=== PATIENT | male | born 1945 | race Caucasian/White ===

== ENCOUNTER 2017-05-11 10:53 | Inpatient (IN) | payer MEDICARE ==
[~2017-05-11] VITALS: Ht 180.3 cm; Wt 113.2 kg
[2017-05-11] MEDS ORDERED: SODIUM CHLORIDE 0.9% 1,000 ML IV ONE ×2 (11:16→12:55)
[2017-05-11] MEDS ORDERED: PLEASE ENTER ALLERGIES MC SCH ×2 (11:30)
[2017-05-11] MEDS ORDERED: ONDANSETRON 2MG/ML, 2ML IVPush ONE (11:30)
[2017-05-11] MEDS ORDERED: SODIUM CHLORIDE FLUSH 10ML SYR IVF ONE (11:30)
[2017-05-11] MEDS ORDERED: SODIUM CHLORIDE 0.9% 1,000ML IVBOLUS ONE (11:30)
[2017-05-11] MEDS ORDERED: ONDANSETRON 2MG/ML, 2ML ONE (12:00)
[2017-05-11 12:04] LABS: HEMATOCRIT 46.5 % (39.2-51.8); WHITE BLOOD COUNT 14.6 x10^3/uL (3.4-10)
[2017-05-11 12:16] LABS: ASPARTATE AMINO TRANSFERASE 8 U/L (15-37); BLOOD UREA NITROGEN 64 mg/dL (7-18)
[2017-05-11] MEDS ORDERED: SODIUM CHLORIDE FLUSH 10ML SYR IVF PRN (13:00)
[2017-05-11] MEDS ORDERED: DOCUSATE 100 MG CAPSULE PO PRN (14:00)
[2017-05-11] MEDS ORDERED: LABETALOL 5MG/ML, 20ML IVPush PRN (14:00)
[2017-05-11] MEDS ORDERED: METOCLOPRAMIDE 5 MG/ML, 2ML IVPush PRN (14:00)
[2017-05-11] MEDS ORDERED: ONDANSETRON 2MG/ML, 2ML IVPush PRN (14:00)
[2017-05-11] MEDS: NICOTINE 7 MG/24 HR PATCH.TD24 TD SCH (14:00)
[2017-05-11] MEDS ORDERED: PHARMACY MAY ADJ FOR RENAL FX MC PRN (14:00)
[2017-05-11] MEDS ORDERED: morphine SULFATE 10 MG/ML, 1ML IVPush PRN (14:00)
[2017-05-11] MEDS ORDERED: POLYETHYLENE GLYCOL 17 GM PACKET PO PRN (14:00)
[2017-05-11] MEDS ORDERED: BISACODYL 10 MG SUPP PR PRN (14:00)
[2017-05-11] MEDS ORDERED: PROMETHAZINE 25 MG/ML, 1ML IM PRN (14:00)
[2017-05-11] MEDS ORDERED: ATEN100T PO (14:07)
[2017-05-11] MEDS ORDERED: ATOR20TA9 PO (14:07)
[2017-05-11] MEDS ORDERED: FAMO40TA61 PO (14:07)
[2017-05-11] MEDS ORDERED: INSU100C SQ-INSULIN (14:07)
[2017-05-11] MEDS ORDERED: ALLO100T30 PO (14:07)
[2017-05-11] MEDS ORDERED: GLIP10TA13 PO (14:07)
[2017-05-11] MEDS ORDERED: ASPI-515 PO (14:07)
[2017-05-11] MEDS ORDERED: TERA10CA3 PO (14:07)
[2017-05-11] MEDS ORDERED: DEXTROSE 50%, 50ML SYRINGE IVPush PRN (14:30)
[2017-05-11] MEDS ORDERED: GLUCAGON 1 MG IM PRN (14:30)
[2017-05-11] MEDS ORDERED: DEXTROSE 4 GM TAB.CHEW PO PRN (14:30)
[2017-05-11] MEDS: INSULIN ASPART 100 UNITS/ML, PEN SQ-INSULIN SCH ×2 (16:00→20:05)
[2017-05-11 16:02] VITALS: BP 154/77
[2017-05-11] MEDS: HEPARIN 5,000 UNITS/ML, 1ML SQ SCH (16:50)
[2017-05-11] MEDS: SODIUM CHLORIDE 0.9% 1,000 ML IV SCH ×2 (16:51→23:07)
[2017-05-11 20:00] VITALS: BP 162/75
[2017-05-11] MEDS: SODIUM CHLORIDE FLUSH 10ML SYR IVF SCH (20:08)
[2017-05-11] MEDS: ATENOLOL 100 MG TABLET PO SCH (20:09)
[2017-05-11] MEDS: ATORVASTATIN 20 MG TABLET PO SCH (20:09)
[2017-05-12] MEDS: HEPARIN 5,000 UNITS/ML, 1ML SQ SCH ×3 (00:43→18:06)
[2017-05-12 02:30] VITALS: BP 151/91
[2017-05-12] MEDS: SODIUM CHLORIDE 0.9% 1,000 ML IV SCH ×3 (03:15→18:08)
[2017-05-12 05:11] LABS: HEMOGLOBIN 13.4 g/dL (13.7-18.0); WHITE BLOOD COUNT 10.1 x10^3/uL (3.4-10)
[2017-05-12 05:18] LABS: ASPARTATE AMINO TRANSFERASE 11 U/L (15-37); BLOOD UREA NITROGEN 54 mg/dL (7-18)
[2017-05-12] MEDS: TERAZOSIN 5MG CAPSULE PO SCH (08:26)
[2017-05-12] MEDS: SODIUM CHLORIDE FLUSH 10ML SYR IVF SCH ×2 (08:26→21:48)
[2017-05-12] MEDS: ALLOPURINOL 100 MG TABLET PO SCH (08:26)
[2017-05-12] MEDS: ATENOLOL 100 MG TABLET PO SCH ×2 (08:26→21:48)
[2017-05-12] MEDS: ASPIRIN 81 MG TABLET EC PO SCH (08:26)
[2017-05-12] MEDS: INSULIN ASPART 100 UNITS/ML, PEN SQ-INSULIN SCH ×4 (08:32→21:00)
[2017-05-12 08:33] VITALS: BP 125/75
[2017-05-12] MEDS: NICOTINE 7 MG/24 HR PATCH.TD24 TD SCH (14:00)
[2017-05-12] MEDS ORDERED: MAGNESIUM SULFATE PMX 4GM/100M 100 ML IV ONE (14:30)
[2017-05-12 14:47] VITALS: BP 117/71
[2017-05-12 19:32] VITALS: BP 116/66
[2017-05-12 21:46] VITALS: BP 125/76
[2017-05-12] MEDS: ATORVASTATIN 20 MG TABLET PO SCH (21:48)
[2017-05-13 01:36] VITALS: BP 128/64
[2017-05-13] MEDS: SODIUM CHLORIDE 0.9% 1,000 ML IV SCH ×3 (04:33→16:45)
[2017-05-13 05:15] LABS: HEMATOCRIT 39.7 % (39.2-51.8); HEMOGLOBIN 12.7 g/dL (13.7-18.0); WHITE BLOOD COUNT 7.6 x10^3/uL (3.4-10)
[2017-05-13 05:25] LABS: ASPARTATE AMINO TRANSFERASE 9 U/L (15-37); BLOOD UREA NITROGEN 45 mg/dL (7-18)
[2017-05-13] MEDS: INSULIN ASPART 100 UNITS/ML, PEN SQ-INSULIN SCH ×4 (07:00→21:00)
[2017-05-13] MEDS: HEPARIN 5,000 UNITS/ML, 1ML SQ SCH ×3 (08:00→22:00)
[2017-05-13 08:04] VITALS: BP 132/64
[2017-05-13] MEDS: TERAZOSIN 5MG CAPSULE PO SCH (08:04)
[2017-05-13] MEDS: ASPIRIN 81 MG TABLET EC PO SCH (08:04)
[2017-05-13] MEDS: SODIUM CHLORIDE FLUSH 10ML SYR IVF SCH ×2 (08:04→21:26)
[2017-05-13] MEDS: ATENOLOL 100 MG TABLET PO SCH ×2 (08:04→21:28)
[2017-05-13] MEDS: ALLOPURINOL 100 MG TABLET PO SCH (08:05)
[2017-05-13] MEDS: NICOTINE 7 MG/24 HR PATCH.TD24 TD SCH (13:33)
[2017-05-13 14:39] VITALS: BP 136/72
[2017-05-13] MEDS ORDERED: HEPARIN 5,000 UNITS/ML, 1ML SQ ONE (15:00)
[2017-05-13 18:45] VITALS: BP 150/77
[2017-05-13] MEDS: ATORVASTATIN 20 MG TABLET PO SCH (21:27)
[2017-05-13 22:02] LABS: PATH.CAST-FLAG NOT PRESENT; SPERM-FLAG NOT PRESENT; SRC-FLAG NOT PRESENT; XTAL-FLAG NOT PRESENT; YLC-FLAG NOT PRESENT
[2017-05-14] MEDS: SODIUM CHLORIDE 0.9% 1,000 ML IV SCH ×3 (00:30→20:27)
[2017-05-14 02:00] VITALS: BP 140/75
[2017-05-14 04:29] VITALS: BP 134/58
[2017-05-14 05:55] LABS: HEMATOCRIT 37.2 % (39.2-51.8); HEMOGLOBIN 12.1 g/dL (13.7-18.0); WHITE BLOOD COUNT 6.5 x10^3/uL (3.4-10)
[2017-05-14] MEDS: HEPARIN 5,000 UNITS/ML, 1ML SQ SCH ×3 (05:58→20:27)
[2017-05-14 06:26] LABS: BLOOD UREA NITROGEN 31 mg/dL (7-18)
[2017-05-14 07:17] VITALS: BP 150/77
[2017-05-14] MEDS: INSULIN ASPART 100 UNITS/ML, PEN SQ-INSULIN SCH ×4 (08:00→20:27)
[2017-05-14] MEDS: TERAZOSIN 5MG CAPSULE PO SCH (10:08)
[2017-05-14] MEDS: ASPIRIN 81 MG TABLET EC PO SCH (10:08)
[2017-05-14] MEDS: ALLOPURINOL 100 MG TABLET PO SCH (10:08)
[2017-05-14] MEDS: SODIUM CHLORIDE FLUSH 10ML SYR IVF SCH ×2 (10:09→20:27)
[2017-05-14] MEDS: ATENOLOL 100 MG TABLET PO SCH ×2 (10:10→20:26)
[2017-05-14] MEDS ORDERED: DIPH1TAB PO (12:32)
[2017-05-14 13:53] VITALS: BP 120/63
[2017-05-14] MEDS: NICOTINE 7 MG/24 HR PATCH.TD24 TD SCH (18:06)
[2017-05-14 18:24] VITALS: BP 146/79
[2017-05-14] MEDS: ATORVASTATIN 20 MG TABLET PO SCH (20:26)
[2017-05-14] MEDS: DIPHENOXYLATE/ATROPINE TABLET PO SCH (20:26)
[2017-05-15 00:47] VITALS: BP 169/78
[2017-05-15] MEDS: SODIUM CHLORIDE 0.9% 1,000 ML IV SCH ×2 (03:16→10:49)
[2017-05-15 03:17] VITALS: BP 158/74
[2017-05-15 05:26] LABS: HEMOGLOBIN 12.4 g/dL (13.7-18.0); WHITE BLOOD COUNT 8.4 x10^3/uL (3.4-10)
[2017-05-15 05:34] LABS: BLOOD UREA NITROGEN 27 mg/dL (7-18)
[2017-05-15] MEDS: HEPARIN 5,000 UNITS/ML, 1ML SQ SCH ×2 (06:00→16:51)
[2017-05-15 06:33] VITALS: BP 146/61
[2017-05-15] MEDS: INSULIN ASPART 100 UNITS/ML, PEN SQ-INSULIN SCH ×3 (07:00→16:00)
[2017-05-15] MEDS: SODIUM CHLORIDE FLUSH 10ML SYR IVF SCH (08:14)
[2017-05-15] MEDS: ASPIRIN 81 MG TABLET EC PO SCH (08:15)
[2017-05-15] MEDS: TERAZOSIN 5MG CAPSULE PO SCH (08:15)
[2017-05-15] MEDS: ALLOPURINOL 100 MG TABLET PO SCH (08:15)
[2017-05-15] MEDS: DIPHENOXYLATE/ATROPINE TABLET PO SCH ×2 (08:16→16:51)
[2017-05-15] MEDS: ATENOLOL 100 MG TABLET PO SCH (10:49)
[2017-05-15 13:07] VITALS: BP 155/72
[2017-05-15] MEDS: NICOTINE 7 MG/24 HR PATCH.TD24 TD SCH (14:00)
== END 2017-05-15 19:23 | disposition home or self-care (01) | DRG 871 ==
LOC: ED 12:41 → EDIP 12:55 → 5SO 15:46 → 4EST 05-12 22:06
PROVIDERS: ADMIT Internal Medicine; ATTEND Internal Medicine
DX: A41.9 Sepsis, unspecified organism (principal); N17.0 Acute kidney failure with tubular necrosis; E86.0 Dehydration; N28.1 Cyst of kidney, acquired; E11.9 Type 2 diabetes mellitus without complications; I34.0 Nonrheumatic mitral (valve) insufficiency; K52.9 Noninfective gastroenteritis and colitis, unspecified; A08.4 Viral intestinal infection, unspecified; E78.00 Pure hypercholesterolemia, unspecified; I10 Essential (primary) hypertension; I25.10 Atherosclerotic heart disease of native coronary artery without angina pectoris; E78.5 Hyperlipidemia, unspecified; I25.2 Old myocardial infarction; Z87.442 Personal history of urinary calculi; Z87.891 Personal history of nicotine dependence; Z95.1 Presence of aortocoronary bypass graft; Z90.49 Acquired absence of other specified parts of digestive tract; Z88.8 Allergy status to other drugs, medicaments and biological substances; Z91.041 Radiographic dye allergy status
CPT/HCPCS: 36415; 74022; 76770; 80048; 80053; 81001; 82436; 82570; 82962; 83605; 83690; 83735; 83880; 84100; 84133; 84300; 84443; 84484; 85025; 85610; 85730; 87046; 87324; 87899; 89055; 93005; 93306; 96374; J1644; J1815; J2405; J3475; J7030